=== PATIENT | male | born 1995 | race Hispanic/Latino ===

== ENCOUNTER 2022-12-13 00:24 | Emergency (ER) | payer SELFPAY ==
[2022-12-13] MEDS ORDERED: Ibuprofen 200 MG TAB ONE (01:38)
== END 2022-12-13 01:44 | disposition home or self-care (01) ==
LOC: ERS 00:24
DX: M79.671 Pain in right foot (principal); W50.0XXA Accidental hit or strike by another person, initial encounter; Y93.66 Activity, soccer

== ENCOUNTER 2023-03-16 01:40 | Emergency (ER) | payer SELFPAY ==
[2023-03-16] MEDS ORDERED: Ketorolac Tromethamine 30 MG/ML VIAL ONE (02:09)
[2023-03-16] MEDS ORDERED: diphenhydrAMINE 50 MG/ML VIAL ONE (02:09)
[2023-03-16] MEDS ORDERED: Metoclopramide HCl 10 MG/2 ML VIAL ONE (02:09)
[2023-03-16] MEDS ORDERED: Acetaminophen 500 MG TAB ONE (02:09)
== END 2023-03-16 03:35 | disposition home or self-care (01) ==
LOC: ERS 01:40
DX: R51.9 Headache, unspecified (principal); F17.210 Nicotine dependence, cigarettes, uncomplicated
CPT/HCPCS: 96365; 96375; J1200; J1885; J2765